=== PATIENT | male | born 1955 | race Caucasian/White ===

== ENCOUNTER → 2021-11-20 | Day surgery (SDC) | payer MEDICARE, OTHER ==
[~2021-11-20] VITALS: Ht 180.3 cm; Wt 90.9 kg
[~2021-11-20] MED LIST: AMBIEN10 MG PO; GARLIC1000 MG PO; LIPITOR 10MG TA10 MG PO; LOVAZA1 GM PO; MEN'S 50 PLUS1 EACH PO; ZESTRIL2.5 MG PO
[2021-11-20 08:36] LABS: HCT 45.2 % (42.0-52.0); HGB 15.6 g/dl (13.2-18.0); MCH 30.4 pg (25.0-31.0); MCHC 34.5 g/dL (32.0-36.0); MCV 87.9 fL (78.0-100.0); MPV 11.1 fL (6.0-9.5); RBC 5.14 M/uL (4.70-6.00); RDW 13.2 % (11.5-14.0); WBC 7.9 K/uL (4.0-10.5)
[2021-11-20 09:00] LABS: ALBUMIN 4.2 g/dL (3.4-5.0); BILIRUBIN - TOTAL 0.7 mg/dL (0.2-1.0); BUN/CREAT RATIO (CALC) 16.9 RATIO; CREATININE 0.83 mg/dL (0.67-1.17); POTASSIUM 3.7 mmol/L (3.5-5.1); TOTAL PROTEIN 8.2 g/dL (6.4-8.2)
== END | disposition home or self-care (01) ==
LOC: FAS 07:43
PROVIDERS: Surgery
DX: Z12.11 Encounter for screening for malignant neoplasm of colon (principal); D12.0 Benign neoplasm of cecum; K57.30 Diverticulosis of large intestine without perforation or abscess without bleeding; E11.9 Type 2 diabetes mellitus without complications; E78.00 Pure hypercholesterolemia, unspecified; Z86.010 Personal history of colon polyps; Z79.899 Other long term (current) drug therapy
CPT/HCPCS: 36415; 80053; J2704; J7120